=== PATIENT | male | born 1975 | race Caucasian/White ===

== ENCOUNTER 2017-12-10 16:01 | Emergency (ER) | payer OTHER ==
--- NOTE | 2017-12-10 17:00 | UC ---
Hand/Wrist HPI - HPI Summary HPI Summary: Pt c/o left finger pain, swelling s/p hitting finger with 3lb sledge hammer 2 days ago. Pt ahs superficial abrasion on left index finger, posterior side between DIP and PIP joint. - History Of Current Complaint Chief Complaint: UCUpperExtremity Stated Complaint: LEFT INDEX FINGER INJURY Time Seen by Provider: 12/10/17 16:28 Hx Obtained From: Patient ?: No Onset/Duration: Sudden Onset, Lasting Days, Still Present, Worse Since - onset Severity Initially: Moderate Severity Currently: Moderate Pain Intensity: 8 Character Of Pain: Dull, Aching, Throbbing Aggravating Factor(s): Movement Alleviating Factor(s): Nothing Associated Signs And Symptoms: Positive: Swelling Related History: Dominant Hand Right - Risk Factors Compartment Syndrome Risk Factors: Pain - Allergies/Home Medications Allergies/Adverse Reactions: Allergies Allergy/AdvReac Type Severity Reaction Status Date / Time Penicillins Allergy Hives Verified 12/10/17 16:43 Home Medications: Home Medications Iron Tablet 25 units PO DAILY 12/10/17 [History Confirmed 12/10/17] Multivitamins/Minerals TAB* [Theragran/minerals TAB*] 1 tab PO DAILY 12/10/17 [ History Confirmed 12/10/17] PMH/Surg Hx/FS Hx/Imm Hx Previously Healthy: Yes - Surgical History Surgical History: Yes Surgery Procedure, Year, and Place: appy, 3 left eye surgeries, 7 b/l ears; left elbow reassembled, 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, 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 and subsequent anemia, right inguinal hernia x 2; abdominal hernia with mesh 09/2017 by Kasi at [facility] - Family History Known Family History: Positive: Cardiac Disease - Social History Occupation: Employed Full-time Lives: With Family Alcohol Use: Occasionally Substance Use Type: None Smoking Status (MU): Former Smoker Have You Smoked in the Last Year: No - Immunization History Most Recent Tetanus Shot: 2015 Review of Systems Constitutional: Negative Skin: Bruising, Other - abrasion Eyes: Negative ENT: Negative Respiratory: Negative Cardiovascular: Negative Gastrointestinal: Negative Genitourinary: Negative Motor: Decreased ROM - left index finger Neurovascular: Negative Musculoskeletal: Arthralgia, Decreased ROM - left index finger, Edema, Myalgia Neurological: Negative Psychological: Negative Is Patient Immunocompromised?: No All Other Systems Reviewed And Are Negative: Yes Physical Exam Triage Information Reviewed: Yes Appearance: Well-Appearing Vital Signs: Initial Vital Signs Temp 99.2 F 12/10/17 16:28 Pulse 87 12/10/17 16:28 Resp 18 12/10/17 16:28 BP 125/82 12/10/17 16:28 Pulse Ox 99 12/10/17 16:28 Vital Signs Reviewed: Yes Eye Exam: Normal ENT: Positive: Hearing grossly normal Dental: Positive: Gross Decay/Caries @ Neck exam: Normal Respiratory: Positive: No respiratory distress Musculoskeletal: Positive: Strength Limited @ - left index finger, ROM Limited @ , Edema @ Neurological Exam: Normal Psychological Exam: Normal Skin Exam: Normal Diagnostics - Radiology No standard instances Radiology Interpretation Completed By: Radiologist - 3 views of left index finger demonstrates no definite fracture. Soft tissue swelling is noted at the proximal interphalangeal joint. IMPRESSION: No fracture of the left index finger is noted. Hand/Wrist Course/Dx - Differential Dx/Diagnosis Differential Diagnosis/HQI/PQRI: Contusion, Fracture, Infection Provider Diagnoses: contusion left index finger. abrsion, left index finger Discharge - Sign-Out/Discharge Documenting (check all that apply): Discharge/Admit/Transfer - Discharge Plan Condition: Stable Disposition: HOME Patient Education Materials: Contusion in Adults (ED), Abrasion (ED), Swollen Joint (ED) Referrals: [facility] [place] [facility] [Outside] Agusto Parker MD [Medical Doctor] - If Needed No Primary Care Phys,NOPCP [Primary Care Provider] - - Billing Disposition and Condition Condition: STABLE Disposition: Home
--- NOTE | 2017-12-10 17:09 | RAD ---
Indication: Left index finger injury 3 views of left index finger demonstrates no definite fracture. Soft tissue swelling is noted at the proximal interphalangeal joint. IMPRESSION: No fracture of the left index finger is noted.
[2017-12-10 17:38] VITALS: BP 125/89
== END 2017-12-10 17:38 | disposition home or self-care (01) ==
LOC: UCCORT 16:01
DX: S60.022A Contusion of left index finger without damage to nail, initial encounter (principal); W22.8XXA Striking against or struck by other objects, initial encounter; Y93.9 Activity, unspecified; Y99.9 Unspecified external cause status; Z88.0 Allergy status to penicillin
CPT/HCPCS: 73140; 99202; G0463